=== PATIENT | female | born 1945 | race Caucasian/White ===

== ENCOUNTER → 2017-01-21 | Outpatient (CLI) | payer OTHER ==
[~2017-01-21] MED LIST: CLEOCIN PO; HCTZ PO; MELOXICAM15 MG PO; MONTELUKAST SOD10 MG PO; PANTOPRAZOLE SO40 MG PO; PAROXETINE HCL20 M1 PO; PRAVASTATIN SOD40 MG PO; PRINIVIL10 MG PO; VOL-CARE RX TA1 EACH PO; WELLBUTRIN100 MG PO
--- NOTE | ~2017-01-21 | MY11 ---
[facility] A Service of [facility] RADIOLOGY TEXT RESULTS PATIENT: STACIA GARCIA LOCATION: [facility] : 46 UNIT #: [id number] AGE: [address]: WILLIE SANCHEZ MD SEX: F ORDER DR: [id number] [place] [id number] [facility]. [place], [place] [address] [id number] O MR#: [id number] Acc #: [id number] NAME: STACIA GARCIA. : 1945 SEX: F STUDY DATE/TIME: 01/21/2017 9:03 UNIT: [facility] ROOM: STUDY DESCRIPTION: MY Mammogram Screening Dig Nicholas Attending Physician: Willie Sanchez M.D. Referring Physician: Willie Sanchez M.D. Ordering Physician: Willie Sanchez M.D. Primary Care Physician: Willie Sanchez M.D. MEDICAL IMAGING REPORT This report is preliminary unless electronic signature is present EXAM Digital screening mammogram, 01/21/2017. HISTORY 71-year-old woman; positive family history, sister. Prior excisional biopsy, right breast. Annual screening. COMPARISON 01/14/2005, 06/19/2010, 09/23/2011. FINDINGS Digital imaging of each breast was completed utilizing a two-view examination of each breast in craniocaudal and mediolateral-oblique projections. Review and interpretation of digital mammograms include a second review in conjunction with FDA-approved CAD device. There is a normal parenchymal presentation bilaterally consistent with the patient's age. There are no breast masses imaged and no parenchymal asymmetry is visualized. There are no suspicious microcalcifications and I see no focal architectural disturbance. NOTE: Breast parenchyma is predominantly fatty replaced. IMPRESSION Negative screening digital mammogram. One-year followup recommended. Patients over the age of 40 are entered into a reminder system with target due date for the next mammogram. A result letter will also be sent to the patient. BIRADS: 1 Negative [facility] A Service [facility] RADIOLOGY TEXT RESULTS PATIENT: STACIA GARCIA LOCATION: [facility] : 46 UNIT #: [id number] AGE: [address]: WILLIE SANCHEZ MD SEX: F ORDER DR: Dictated by... Luis Angel Felder M.D. THIS IS AN ELECTRONICALLY VERIFIED REPORT Luis Angel Felder M.D. at 01/22/2017 12:27 PM TRICIA/adeola TD: 01/22/2017 12:04 JOB #: [id number] MEDICAL IMAGING REPORT Page 1 of 1 COPY
--- NOTE | ~2017-01-21 | CR97 ---
[facility] A Service of [facility] RADIOLOGY TEXT RESULTS PATIENT: STACIA GARCIA LOCATION: [facility] : 46 UNIT #: [id number] AGE: [address]: WILLIE SANCHEZ MD SEX: F ORDER DR: [id number] [facility] [address] [facility]. [place], [place] [address] [id number] O MR#: [id number] Acc #: [id number] NAME: STACIA GARCIA : 1945 SEX: F STUDY DATE/TIME: 01/21/2017 11:30 UNIT: [facility] ROOM: STUDY DESCRIPTION: CR Esophagram Attending Physician: Willie Sanchez M.D. Referring Physician: Willie Sanchez M.D. Ordering Physician: Willie Sanchez M.D. Primary Care Physician: Willie Sanchez M.D. MEDICAL IMAGING REPORT This report is preliminary unless electronic signature is present EXAM Double contrast barium esophagram INDICATION Choking on food and liquids for one month. TECHNIQUE Patient was administered bicarbonate crystals as well as thick and thing barium and multiple fluoroscopic images were obtained. FINDINGS The patient's thoracic esophagus is of normal caliber. Esophageal motility appeared within normal limits. Esophageal mucosa appeared unremarkable. Patient does appear to have a small hiatal hernia. She was administered a barium tablet which passed promptly into the stomach. IMPRESSION Small hiatal hernia, otherwise unremarkable examination. Total fluoroscopy time was 0.7 minutes and a total of 13 fluoroscopic images were obtained. Dictated by... Hetal Whitney M.D. THIS IS AN ELECTRONICALLY VERIFIED REPORT Hetal Whitney M.D. at 01/22/2017 4:52 PM NIECY/tash TD: 01/22/2017 09:52 JOB #: [id number] MEDICAL IMAGING REPORT Page 1 of 1 COPY
== END | disposition home or self-care (01) ==
LOC: CWCC 08:11
DX: Z12.31 Encounter for screening mammogram for malignant neoplasm of breast (principal); Z80.3 Family history of malignant neoplasm of breast; Z98.890 Other specified postprocedural states; E78.00 Pure hypercholesterolemia, unspecified; R07.89 Other chest pain; R13.10 Dysphagia, unspecified; K44.9 Diaphragmatic hernia without obstruction or gangrene
CPT/HCPCS: 74220; G0202

== ENCOUNTER → 2017-03-02 | Outpatient (CLI) | payer OTHER ==
--- NOTE | ~2017-03-02 | CR63 ---
[facility] A Service [facility] RADIOLOGY TEXT RESULTS PATIENT: STACIA GARCIA LOCATION: [facility] : 46 UNIT #: [id number] AGE: [address]: Desiree Stapleton MD SEX: F ORDER DR: [id number] [facility] [address] [facility]. [place], [place] [address] [id number] O MR#: [id number] Acc #: [id number] NAME: STACIA GARCIA. : 1945 SEX: F STUDY DATE/TIME: 03/02/2017 11:56 UNIT: [facility] ROOM: STUDY DESCRIPTION: CR Chest 2 View Attending Physician: Estephania Stapleton M.D. Referring Physician: Estephania Stapleton M.D. Ordering Physician: Estephania Stapleton M.D. Primary Care Physician: Meena Tirado M.D. MEDICAL IMAGING REPORT This report is preliminary unless electronic signature is present EXAM 2 views chest 03/02/2017 HISTORY Abnormal EKG. Cough, short of air, congestion 2 months. Nonsmoker. High blood pressure. TECHNIQUE PA and lateral radiographs the chest are presented. COMPARISON 01/08/2016 FINDINGS No acute-appearing bony abnormality. There are degenerative changes in the spine. Patient appears to be status post L1 vertebroplasty. The heart is mildly enlarged. Stable. Stable appearance of tortuous descending thoracic aorta. Lungs somewhat hyperinflated. Correlate with any known chronic airway disease. There are some fine linear interstitial densities at the bilateral lung bases, left greater than right. Likely reflecting chronic interstitial change. More conspicuous than on prior study. There is no compelling evidence of pulmonary edema. No indication of pneumonia. No pleural effusion or pneumothorax and no suspicious nodule. The pulmonary vasculature appears within normal limits. Dictated by... Elías Eubanks M.D. THIS IS AN ELECTRONICALLY VERIFIED REPORT Elías Eubanks M.D. at 03/02/2017 6:08 PM JSK/adeola [facility] A Service [facility] RADIOLOGY TEXT RESULTS PATIENT: STACIA GARCIA LOCATION: [facility] #: [id number] : 46 UNIT #: [id number] AGE: [address]: Desiree Stapleton MD SEX: F ORDER DR: TD: 03/02/2017 17:58 JOB #: [id number] MEDICAL IMAGING REPORT Page 1 of 1 COPY
== END | disposition home or self-care (01) ==
LOC: CRAD 11:22
DX: R94.31 Abnormal electrocardiogram [ECG] [EKG] (principal)
CPT/HCPCS: 71020

== ENCOUNTER 2017-03-05 18:29 | Inpatient (IN) | payer OTHER ==
--- NOTE | ~2017-03-05 | CO ---
Unit #: [id number] #: [id number] Patient: STACIA GARCIA [id number] [address] [place], [place] [address] [id number] I MR#: [id number] NAME: STACIA GARCIA. ROOM: 576 Age: 71 Sex: F Admission Date: 03/05/2017 : 1945 Attending Physician: Eva Vuong M.D. Primary Care Physician: Meena Tirado M.D. CONSULTATION REPORT REASON FOR CONSULTATION Symptomatic anemia. HISTORY OF PRESENTING ILLNESS The patient is a very pleasant, healthy-appearing 71-year-old female, who presented to the emergency department for evaluation of generalized weakness and shortness of breath. She actually went to her primary care physician yesterday, where the routine lab work was done and she was told that her hemoglobin is quite low and she needed to go to the ER. She has noticed dark stools for the past several months. Denies any bright red stool. Denies any other GI complaints. Denies abdominal pain, nausea, or vomiting. Denies any change in weight. She reports her last colonoscopy was about 9 years ago. PAST MEDICAL HISTORY Hypertension, hyperlipidemia, back surgery. PAST SURGICAL HISTORY Colonoscopy about 9 years ago. ALLERGIES To Phenergan and codeine. HOME MEDICATIONS Pravastatin, Protonix, ibuprofen, paroxetine, montelukast, meloxicam, lisinopril, aspirin. SOCIAL HISTORY The patient lives at home with her . Denies alcohol, illicit drugs, or tobacco. FAMILY HISTORY Mother with cardiac disease. Father with history of perhaps cancer. REVIEW OF SYSTEMS A complete 10-point review of systems is completed and negative except as mentioned in the HPI. PHYSICAL EXAMINATION GENERAL: The patient is a very pleasant, 71-year-old female, who appears in no acute distress. VITAL SIGNS: Temperature is 98.4, pulse is 70, respirations 16, blood pressure is 105/89. HEENT: PERRLA. Unit #: [id number] #: [id number] Patient: STACIA GARCIA NECK: Supple. CARDIAC: S1, S2. LUNGS: Clear to auscultation. ABDOMEN: Soft, rounded, nontender, nondistended. Positive bowel sounds. NEUROLOGIC: The patient is alert, awake, and oriented x3. DIAGNOSTIC STUDIES LABORATORY RESULTS: Chemistry is completely normal. White count 6.9; hemoglobin on arrival was 4.9, after 2 units, she was 6.9, she is currently receiving two more units; hematocrit is 22.7; and platelets are 280. ASSESSMENT AND PLAN Anemia of acute blood loss. We will plan EGD for the morning. Continue to monitor H and H. Continue transfusions as needed. The patient has poor access at this time and it is currently being used for transfusions, thus we will change Protonix from Protonix drip, which she has already been bolused two 40 mg IV b.i.d. Further recommendations depend the EGD in the morning. Thank you for this interesting consult. We will continue to follow along. Dictated by... Briana Singh A.P.R.N. for Jacobo Garrison/kervin TD: 03/06/2017 21:01 JOB #: [id number] CONSULTATION REPORT Page 1 of 1 X X CONSULTATION REPORT
--- NOTE | ~2017-03-05 | OR ---
Unit #: [id number] #: [id number] Patient: STACIA GARCIA [id number] [address] [place], [place] [address] [id number] I MR#: [id number] NAME: STACIA GARCIA. ROOM: 576 Date of Procedure: 03/07/2017 Admission Date: 03/05/2017 Surgeon: Chuy Dempsey M.D. : 1945 Attending Physician: Eva Vuong M.D. Primary Care Physician: Meena Tirado M.D. OPERATIVE REPORT PROCEDURE PERFORMED Esophagogastroduodenoscopy with biopsy. INDICATIONS FOR PROCEDURE The patient with severe anemia, iron deficiency; blood in the stool, undergoing evaluation with upper endoscopy. MEDICATIONS Monitored anesthesia. POSTOPERATIVE FINDINGS 1. Normal esophagus. 2. Mild gastritis. Biopsy was taken. 3. Normal duodenum and distal duodenum. 4. No clear signs or stigmata of recent bleeding was seen. PLAN We will need further evaluation with colonoscopy. DESCRIPTION OF PROCEDURE The patient was explained of the procedure, risks, and benefits along with risks and benefits of anesthesia. She was brought to the endoscopy room. Propofol anesthesia was given. Bite block was placed. The scope was passed down the mouth into the esophagus, stomach, duodenum, and distal duodenum. Findings as described. Biopsy was taken. Gently, I pulled the scope out of the patient's mouth. She tolerated it well. Dictated by... Jacobo Garrison/kervin TD: 03/07/2017 12:29 JOB #: [id number] Unit #: [id number] #: [id number] Patient: STACIA GARCIA OPERATIVE REPORT Page 1 of 1 X Chuy Dempsey MD PROCEDURE OPERATIVE NOTE
--- NOTE | ~2017-03-05 | HP ---
Unit #: [id number] #: [id number] Patient: STACIA GARCIA [id number] [facility] [address] [facility] [facility]. [place], [place] [address] [id number] I MR#: [id number] NAME: STACIA GARCIA. ROOM: 22517 Age: 71 Sex: F Admission Date: 03/05/2017 : 1945 Attending Physician: Danielle Treadwell M.D. Primary Care Physician: Meena Tirado M.D. HISTORY AND PHYSICAL CHIEF COMPLAINT Short of air, weak. HISTORY OF PRESENT ILLNESS The patient is a 71-year-old female with past medical history of hypertension, hyperlipidemia, who presented to the emergency department for evaluation of the above. The patient states that she has had a two to three-month history of increasing generalized weakness and shortness of breath. She states that she has dyspnea on exertion when walking across the room. She denies any chest pain. She has had palpitations. She denies any fever. No abdominal pain. She has noticed her stool has been dark the past couple of weeks but no blood in the stool. She has actually gained weight, about 10 pounds, over the past year. She did have a colonoscopy about 9 years ago at [facility]. She has never had an EGD. She saw her primary care physician today and routine lab work was done. She states that as she was leaving the appointment, she was called and told to go to the emergency department for low blood count. In the emergency department, hemoglobin was noted to be 4.9, MCV 61.7. She was heme-positive in the emergency department. Two units of packed red blood cells have been ordered. She is being admitted to [facility] for evaluation and further treatment. PAST MEDICAL HISTORY 1. Admission to [facility] for back surgery (no records). 2. Hypertension. 3. Hyperlipidemia. PAST SURGICAL HISTORY 1. Back surgery. 2. Neck surgery. 3. Colonoscopy approximately 9 years ago (no records). ALLERGIES 1. Phenergan. 2. Codeine. HOME MEDICATIONS Include: 1. Pravastatin. 2. Pantoprazole. 3. Bupropion. Unit #: [id number] #: [id number] Patient: STACIA GARCIA 4. Paroxetine. 5. Montelukast. 6. Meloxicam. 7. Lisinopril. 8. Aspirin. Home medications will need to be reviewed and verified. SOCIAL HISTORY The patient lives with her . There is no tobacco or alcohol use. Her code status is a FULL CODE. FAMILY HISTORY Notable for her mother dying of a myocardial infarction at the age of 78. Her father had what sounds like laryngeal malignancy. REVIEW OF SYSTEMS A complete review of systems is negative except as indicated in the HPI. The patient states that she has seen Dr. Hawkins in the past, specifically for preoperative evaluation prior to back surgery. She also saw him on the day prior to admission regarding the difficulty breathing that she has been having. She states that he started her on hydrochlorothiazide which she has been taking as prescribed. PHYSICAL EXAMINATION VITAL SIGNS: Temperature 98.4, pulse 74, respirations 15, blood pressure 153/59, oxygen saturation 97% on room air. GENERAL: The patient is a very pleasant female who is awake and alert in no acute distress. HEENT: Head is atraumatic. Conjunctivae are pale. NECK: Supple. Trachea is midline. LUNGS: Clear to auscultation bilaterally with no increased work of breathing. HEART: Regular rate and rhythm. ABDOMEN: Soft, nontender. Bowel sounds present in all four quadrants. RECTAL: Heme-positive per ER documentation. EXTREMITIES: Nontender with no pedal edema. NEUROLOGIC: Patient is awake and alert. She follows commands. PSYCHIATRIC: Mood and affect are normal. Patient is cooperative. SKIN OF EXAMINED AREAS: Warm and dry. DIAGNOSTIC STUDIES LABORATORY: INR 1. Complete blood count notable for hemoglobin 4.9, hematocrit 17, MCV 61.7, RDW 20.3. Comprehensive metabolic panel completely normal. IMAGING: Chest x-ray, from 03/02/2017, showed no compelling evidence of pulmonary edema. The heart was mildly enlarged. ASSESSMENT The patient is a 71-year-old female with: 1. Symptomatic anemia. The patient's hemoglobin is 4.9. There is no baseline for comparison. 2. Acute blood loss anemia. Two units of packed red blood cells have been ordered. 3. Gastrointestinal bleed. The patient had a colonoscopy about 9 years ago (no records). 4. Hypertension. Unit #: [id number] #: [id number] Patient: STACIA GARCIA 5. Hyperlipidemia. PLAN 1. Admit to ICU. 2. Clear liquid diet for possible endoscopy. 3. N.p.o. after midnight. 4. Transfuse 2 units of packed red blood cells as previously ordered. 5. Hemoglobin and hematocrit 1 hour after transfusion and q.6 h. 6. Protonix 80 mg IV times 1, followed by Protonix drip at 8 mg per hour. 7. Iron studies, B12 and folate. 8. Hold aspirin and meloxicam. 9. Consult Dr. Dempsey regarding GI bleed. 10. EKG and cardiac enzymes. 11. SCDs for DVT prophylaxis. 12. Bedrest, fall precautions. 13. Repeat labs in the morning. 14. Additional workup and consultants based on above. 15. Regarding code status, the patient is a FULL CODE. Thirty minutes critical care time spent in the care of this patient (7:28 to 7:58 p.m.). Dictated by Jacobo Hubbard/ben TD: 03/05/2017 21:36 JOB #: [id number] HISTORY AND PHYSICAL Page 1 of 1 X Danielle Treadwell MD HISTORY AND PHYSICAL
--- NOTE | ~2017-03-05 | CR72 ---
[facility] A Service of [facility] RADIOLOGY TEXT RESULTS PATIENT: STACIA GARCIA LOCATION: [facility] [place] [facility] : 46 UNIT #: [id number] AGE: [address]: Eva Vuong MD SEX: F ORDER DR: [id number] [facility] [address] [place], [place] [address] [id number] I MR#: [id number] Acc #: [id number] NAME: STACIA GARCIA. : 1945 SEX: F STUDY DATE/TIME: 03/05/2017 19:55 UNIT: [facility] ROOM: [facility] STUDY DESCRIPTION: CR Chest Single View Portable Attending Physician: Danielle Treadwell M.D. Primary Care Physician: Meena Tirado M.D. MEDICAL IMAGING REPORT This report is preliminary unless electronic signature is present EXAM Portable chest radiograph 03/05/2017 HISTORY Short of air Low O2 sats. Began 2 months ago. FINDINGS AP radiograph of the chest is presented. Clothing artifacts overlying the image. Comparison 03/02/2017. Stable cardiac enlargement. Stable tortuosity descending thoracic aorta. The lungs are well inflated. No acute pulmonary disease is seen. No pleural effusion or pneumothorax. No suspicious nodule. There appears to be mild thoracolumbar scoliosis convex to left lower thoracic spine and to right in the lumbar spine. There is high density seen in the L2 vertebral body which could represent degenerative sclerotic change or prior vertebroplasty. Correlate with history. In the absence of risk factors, isolated sclerotic metastatic disease felt unlikely. No change from prior study. No dedicated lumbar spine imaging for comparison. If it would assist in management, lumbar spine radiographs could be obtained. Please correlate with a history of any prior vertebroplasty. Dictated by... Elías Eubanks M.D. THIS IS AN ELECTRONICALLY VERIFIED REPORT Elías Eubanks M.D. at 03/08/2017 8:19 PM CAMELIA/priya TD: 03/06/2017 01:17 JOB #: [id number] MEDICAL IMAGING REPORT Page 1 of 1 COPY
--- NOTE | ~2017-03-05 | OR ---
Unit #: [id number] #: [id number] Patient: STACIA GARCIA [id number] [facility]. [place], [place] [address] [id number] Red MR#: [id number] NAME: STACIA GARCIA. ROOM: 576 Date of Procedure: 03/08/2017 Admission Date: 03/05/2017 Surgeon: Chuy Dempsey M.D. : 1945 Attending Physician: Chris Chakraborty M.D. Primary Care Physician: Meena Tirado M.D. 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 INDICATIONS FOR PROCEDURE The patient with severe iron-deficiency anemia and GI bleeding, undergoing colonoscopy for evaluation. MEDICATIONS Monitored anesthesia. POSTOPERATIVE FINDINGS 1. 5 mm AVM in the cecum, cauterized using APC. 2. Polyp 1.5 cm, sigmoid colon, snared and sent for histopathology. 3. Rest of the colon exam to cecum was normal. Prep was adequate. PLAN Follow up on pathology report. Capsule endoscopy for further evaluation. DESCRIPTION OF PROCEDURE The patient was explained of the procedure, risks, and benefits along with risks and benefits of anesthesia. She was brought to the endoscopy room. Propofol anesthesia was given. Rectal exam was done, which was normal. Colonoscope was lubricated, passed up the rectum, advanced under direct vision all the way to the cecum. Cecum was identified by ileocecal valve and appendiceal orifice. I then started to pull the scope out carefully looking. AVM seen in the cecum was cauterized using APC. Polyp seen in sigmoid was snared and sent for histopathology. Rest of the mucosa was normal and healthy. I retroflexed in the rectum, internal hemorrhoids noted. Gently, the scope was pulled out. She tolerated it well. Dictated by... Jacobo Garrison/kervin TD: 03/09/2017 02:09 JOB #: [id number] Unit #: [id number] #: [id number] Patient: STACIA GARCIA OPERATIVE REPORT Page 1 of 1 X Chuy Dempsey MD PROCEDURE OPERATIVE NOTE
--- NOTE | ~2017-03-05 | EKG ---
PATIENT: STACIA GARCIA UNIT #: [id number] Ventricular Rate: 78 BPM Atrial Rate: 78 BPM P-R Interval: 150 ms QRS Duration: 82 ms Q-T Interval: 416 ms QTC Calculation(Bezet): 474 ms P [place]: -24 degrees Calculated T [place]: -11 degrees Diagnosis Line: Normal sinus rhythm Diagnosis Line: Minimal voltage criteria for LVH, may be normal Diagnosis Line: variant Diagnosis Line: Nonspecific ST and T wave abnormality Diagnosis Line: Abnormal ECG Diagnosis Line: No previous ECGs available Diagnosis Line: Confirmed by ELIEL HERNANDEZ MD ([id number]) on Diagnosis Line: 03/08/2017 8:34:00 AM INTERPRETING MD: DAVID SALOMON
--- NOTE | ~2017-03-05 | DS ---
Unit #: [id number] #: [id number] Patient: STACIA GARCIA [id number] [address] [place], [place] [address] [id number] I MR#: [id number] NAME: STACIA GARCIA. ROOM: 576 Age: 71 Sex: F Admission Date: 03/05/2017 : 1945 Discharge Date: 03/09/2017 Attending Physician: Chris Chakraborty M.D. Primary Care Physician: Meena Tirado M.D. DISCHARGE SUMMARY ADDENDUM TO JOB#: [id number] FINAL DIAGNOSES 1. Acute blood loss anemia. 2. Gastrointestinal bleed. 3. Gastritis. 4. Cecal arteriovenous malformation, status post Argon plasma coagulation. 5. Hypokalemia, resolved. 6. Hyponatremia, resolved. 7. Cellulitis, left arm. ADDITIONAL PROCEDURE Colonoscopy with snare polypectomy and colonoscopy with Argon plasma coagulation for arteriovenous malformation in the cecum. POSTOPERATIVE FINDINGS 1. 5 mm arteriovenous malformation in the cecum, cauterized using a PC. 2. Polyp 1.5 cm sigmoid colon snared and sent for histopathology. 3. Rest of colon exam to cecum normal, prep was adequate. DIAGNOSTIC STUDIES Histopathology report: Sigmoid colon polyp. The patient is to follow-up with Dr. Dempsey for these results. Most recent diagnostic studies, WBC 10.6, hemoglobin 9.9, hematocrit 31.5, MCV 72.0, MCH 22.5, RDW 27.7, platelet count 306,000, sodium 139, potassium 4.3, chloride 108, CO2 23, glucose 109, BUN 11, creatinine 0.7, calcium 8.9, AST 35, ALT 25, alkaline phos 44, bili total 0.7, total protein 6.2, albumin 3.7, magnesium 2.1, troponin 1 less than 0.03, percent MB 1.8, iron 13, TIBC 619, transferrin 442, transit 2, B12 1443, folate greater than 23.6. Ferritin 2. DISCHARGE MEDICATIONS 1. Wellbutrin 100 mg p.o. every morning. 2. Paxil 20 mg p.o. at bedtime. 3. Hydrochlorothiazide 25 mg p.o. daily. 4. Pravastatin sodium 40 mg p.o. daily. 5. Prinivil 10 mg p.o. daily. 6. Singulair 10 mg p.o. daily. 7. Protonix 40 mg p.o. b.i.d., prescription written #60, no refills. 8. Vitamin B complex 3/FA-vit C/biotin tablet 1 p.o. daily. 9. Clindamycin 600 mg p.o. t.i.d. x7 days, prescription written, #21, no refills. Unit #: [id number] #: [id number] Patient: STACIA GARCIA DIET Healthy heart diet as tolerated. CONDITION Stable. DISPOSITION Home with . FOLLOW UP #1. Per notation of Dr. Dempsey today, the patient is to follow-up in his office in 4 weeks. #2. Per discussion with the patient's , the patient is to have a capsule endoscopy scheduled through Dr. Dempsey's office and performed at [facility]. It is unclear when this is to be performed and whether it is to be performed prior to the patient's 4 week follow-up visit. I have asked the nursing staff to clarify this for the patient prior to discharge today. #3. The patient has been advised to discontinue all NSAID use. #4. The patient is established with Dr. Tirado, as her PCP. She has been advised to follow up with Dr. Tirado in 48 hours if there is no improvement in left arm cellulitis. She has also been advised to go to the emergency department, if fever, chills, worsening of left arm cellulitis and she has verbalized understanding this information. HOSPITAL COURSE The patient is a 71-year-old female who presented t. [facility] on the date of admission, complaints of shortness of air and weakness. She was evaluated in the emergency department and lab work revealed hemoglobin 4.9. She is also noted to be heme positive at that time. She was admitted to the hospital for further evaluation and management of her condition. Please refer to the history and physical report for complete details. Dr. Dempsey was consulted for further GI evaluation and management of symptomatic anemia and likely GI bleed. Per his report, the patient noted dark stools for the past several months. She took meloxicam for chronic back pain at home. There is no history of EtOH use. An EGD was performed with results showing mild gastritis. No clear signs or stigmata of recent bleeding was seen. The esophagus, duodenum and distal duodenum were all normal per report review. The patient was scheduled for colonoscopy which was performed yesterday in which patient tolerated well. Results are as dictated above. At this time, the patient is stable, has no GI bleeding. Hemoglobin and hematocrit are as dictated above. Patient received a total of 4 units of packed red blood cells during her hospital course. She has no shortness of air and has been cleared for discharge home with follow-up instructions as dictated above by both Dr. Dempsey and Dr. Chakraborty. The patient complained of increasing erythema, heat and tenderness of the left arm near the left antecubital space. This area was evaluated by Dr. Chakraborty and she has been given a prescription for clindamycin 600 mg p.o. t.i.d. for 7 days and a prescription has been written for that medication. She is to follow-up with Dr. Tirado or the emergency department per instructions dictated above. This information has been discussed with the patient, she verbalizes understanding. Unit #: [id number] #: [id number] Patient: STACIA GARCIA Dictated by... Mattie Sheppard A.P.R.N. for Jacobo Dailey/marisol TD: 03/09/2017 23:31 JOB #: [id number] DISCHARGE SUMMARY Page 1 of 1 X Mattie Sheppard APRN X DISCHARGE SUMMARY
--- NOTE | ~2017-03-05 | DS ---
Unit #: [id number] #: [id number] Patient: STACIA GARCIA [id number] [address] [place], [place] [address] [id number] I MR#: [id number] NAME: STACIA GARCIA. ROOM: 576 Age: 71 Sex: F Admission Date: 03/05/2017 : 1945 Discharge Date: 03/07/2017 Attending Physician: Eva Vuong M.D. Primary Care Physician: Meena Tirado M.D. DISCHARGE SUMMARY FINAL DIAGNOSES 1. Acute blood loss anemia. 2. Gastrointestinal bleed. SECONDARY DIAGNOSES 1. Hypertension. 2. Gastroesophageal reflux disease. 3. Anxiety/depression. 4. Hyperlipidemia. CONSULT [address]. Dempsey. PROCEDURE She had endoscopy on 03/07/17. HOSPITAL COURSE 71-year-old female who presented with profound weakness progressively over the past two to three months. She gave a history of having melenic stools. Hemoglobin on admission was about 4.9 and it went as low as 4.8. She received about four units of packed red blood cells. She is scheduled to have endoscopy today. At the time of this dictation, endoscopy is pending. Hemoglobin today was 10.9 and stable. No evidence of bleeding per rectum or black stools. She will be discharged when cleared by Dr. Dempsey after endoscopy. Otherwise, further management will be determined by GI. MEDICATIONS Tentative medications on discharge include: 1. Wellbutrin 100 mg p.o. daily. 2. Paroxetine 20 mg p.o. daily. 3. Hydrochlorothiazide 25 mg p.o. daily. 4. Pravastatin 40 mg p.o. daily. 5. Prinivil 10 mg p.o. daily. 6. Singulair 10 mg p.o. daily. 7. She is to stop the meloxicam. 8. Protonix 4 mg p.o. daily. 9. Vitamin D complex, one tablet p.o. daily. She is to follow with her PCP in the next three to five days. Will schedule a repeat CBC, BMP in a week from discharge. She will be discharged with home health if she is agreeable. Time spent coordinating discharge is about 23 minutes. Unit #: [id number] #: [id number] Patient: STACIA GARCIA Dictated by... Jacobo Mann/yevgeniy TD: 03/07/2017 11:47 JOB #: [id number] DISCHARGE SUMMARY Page 1 of 1 X Eva Vuong MD DISCHARGE SUMMARY
[2017-03-05 19:24] LABS: BASOPHIL# 0.1 X10e3 (0-0.3); BASOPHIL% 1.8 % (0-2.5); EOSINOPHIL# 0.4 X10e3 (0-0.7); EOSINOPHIL% 7.2 % (0.0-7.0); LYMPHOCYTE# 1.7 X10e3 (1.0-3.5); LYMPHOCYTE% 28.2 % (17.0-45.0); MEAN CELL VOLUME 61.7 FL (83-96); MEAN CORPUSCULAR HEMOGLOBIN 17.7 PG (28-34); MEAN CORPUSCULAR HGB CONC 28.7 g/dL (30-36); MEAN PLATELET VOLUME 8.4 FL (6.5-11.5); MONOCYTE# 0.7 X10e3 (0-1.0); MONOCYTE% 10.8 % (3.0-12.0); NEUTROPHIL# 3.2 X10e3 (1.5-7.1); PLATELET COUNT 325 X10e3 (140-420); RED BLOOD COUNT 2.76 X10e (3.90-5.30); RED CELL DISTRIBUTION WIDTH 20.3 % (11.0-15.5); WHITE BLOOD COUNT 6.2 X10e3 (4.0-10.5)
[2017-03-05 19:30] LABS: DIFF IND YES; HEMOGLOBIN 4.9 gm/dL (12.0-16.0)
[2017-03-05 19:34] LABS: ALBUMIN SERUM 4.1 g/dL (3.5-5.0); BILIRUBIN,TOTAL 0.5 mg/dL (0.2-2.0); BUN/CREATININE RATIO 23.33; CALCIUM SERUM 9.1 mg/dL (8.4-10.2); CREATININE SERUM 0.6 mg/dL (0.6-1.4); GLOM FILT RATE Estimated 92.4 mL/min (>60); POTASSIUM 3.8 mmol/L (3.5-5.1)
[2017-03-05 19:36] LABS: PARTIAL THROMBOPLASTIN TIME 22.2 SECONDS (23.5-31.3); PROTHROMBIN TIME (PATIENT) 10.4 SECONDS (9.6-11.5)
[2017-03-05 19:42] LABS: ANISOCYTOSIS MOD; MICROCYTOSIS MOD; PLATELET ESTIMATE NORMAL (NORMAL)
[2017-03-05 19:43] LABS: POLYCHROMASIA SL
[2017-03-05 20:43] LABS: HEMATOCRIT 16.2 % (35.0-45.0)
[2017-03-05 20:46] LABS: HEMOGLOBIN 4.8 gm/dL (12.0-16.0)
[2017-03-05 21:09] LABS: IRON SERUM 13 ug/dL (28-170); TOTAL IRON BINDING CAPACITY 619 ug/dL (269-535); TRANSFERRIN 442 mg/dL (192-382); TRANSFERRIN SATURATION 2 % (20-50)
[2017-03-05 21:28] LABS: FOLATE (FOLIC ACID) >23.6 ng/mL (>5.8)
[2017-03-05 22:05] LABS: %MB 1.8 % (0.0-4.0); MB 2.2 ng/ml
[2017-03-05] MEDS ORDERED: PRAVASTATIN SOD40 MG PO (23:05)
[2017-03-05] MEDS ORDERED: WELLBUTRIN100 MG PO (23:06)
[2017-03-05] MEDS ORDERED: PAROXETINE HCL20 M1 PO (23:06)
[2017-03-05] MEDS ORDERED: MONTELUKAST SOD10 MG PO (23:07)
[2017-03-05] MEDS ORDERED: PRINIVIL10 MG PO (23:07)
[2017-03-05] MEDS ORDERED: MELOXICAM15 MG PO (23:07)
[2017-03-05] MEDS ORDERED: VOL-CARE RX TA1 EACH PO (23:08)
[2017-03-05] MEDS ORDERED: PANTOPRAZOLE SO40 MG PO (23:09)
[2017-03-05] MEDS ORDERED: HCTZ PO (23:17)
[2017-03-06 06:09] LABS: BASOPHIL# 0.1 X10e3 (0-0.3); BASOPHIL% 1.5 % (0-2.5); EOSINOPHIL# 0.5 X10e3 (0-0.7); EOSINOPHIL% 7.4 % (0.0-7.0); HEMATOCRIT 22.7 % (35.0-45.0); LYMPHOCYTE# 1.6 X10e3 (1.0-3.5); LYMPHOCYTE% 23.1 % (17.0-45.0); MEAN CORPUSCULAR HEMOGLOBIN 20.3 PG (28-34); MEAN CORPUSCULAR HGB CONC 30.6 g/dL (30-36); MEAN PLATELET VOLUME 8.5 FL (6.5-11.5); MONOCYTE# 0.7 X10e3 (0-1.0); MONOCYTE% 9.6 % (3.0-12.0); NEUTROPHIL% 58.4 % (40-75); PLATELET COUNT 280 X10e3 (140-420); RED BLOOD COUNT 3.42 X10e (3.90-5.30); RED CELL DISTRIBUTION WIDTH 25.1 % (11.0-15.5); WHITE BLOOD COUNT 6.9 X10e3 (4.0-10.5)
[2017-03-06 06:11] LABS: DIFF IND NO; HEMOGLOBIN 6.9 gm/dL (12.0-16.0); MEAN CELL VOLUME 66.5 FL (83-96)
[2017-03-06 06:39] LABS: CALCIUM SERUM 8.9 mg/dL (8.4-10.2); CREATININE SERUM 0.6 mg/dL (0.6-1.4); GLOM FILT RATE Estimated 92.4 mL/min (>60); POTASSIUM 3.9 mmol/L (3.5-5.1)
[2017-03-06 06:54] LABS: %MB 1.7 % (0.0-4.0); MB 2.2 ng/ml
[2017-03-06 09:28] LABS: %MB 1.8 % (0.0-4.0); MB 2.4 ng/ml
[2017-03-06 15:07] LABS: HEMATOCRIT 32.4 % (35.0-45.0)
[2017-03-06 15:09] LABS: HEMOGLOBIN 10.2 gm/dL (12.0-16.0)
[2017-03-06 21:17] LABS: HEMATOCRIT 32.4 % (35.0-45.0); HEMOGLOBIN 10.4 gm/dL (12.0-16.0)
[2017-03-07 03:57] LABS: HEMATOCRIT 34.9 % (35.0-45.0); HEMOGLOBIN 10.9 gm/dL (12.0-16.0)
[2017-03-07 07:58] LABS: BASOPHIL# 0.1 X10e3 (0-0.3); EOSINOPHIL# 0.4 X10e3 (0-0.7); EOSINOPHIL% 5.2 % (0.0-7.0); HEMATOCRIT 34.2 % (35.0-45.0); HEMOGLOBIN 10.5 gm/dL (12.0-16.0); LYMPHOCYTE# 1.4 X10e3 (1.0-3.5); LYMPHOCYTE% 18.2 % (17.0-45.0); MEAN CORPUSCULAR HEMOGLOBIN 21.9 PG (28-34); MEAN CORPUSCULAR HGB CONC 30.8 g/dL (30-36); MEAN PLATELET VOLUME 8.8 FL (6.5-11.5); MONOCYTE# 0.9 X10e3 (0-1.0); MONOCYTE% 11.8 % (3.0-12.0); NEUTROPHIL# 4.9 X10e3 (1.5-7.1); NEUTROPHIL% 63.8 % (40-75); PLATELET COUNT 307 X10e3 (140-420); RED CELL DISTRIBUTION WIDTH 26.4 % (11.0-15.5); WHITE BLOOD COUNT 7.7 X10e3 (4.0-10.5)
[2017-03-07 07:59] LABS: MEAN CELL VOLUME 71.3 FL (83-96)
[2017-03-07 08:00] LABS: DIFF IND NO
[2017-03-07 08:31] LABS: BUN/CREATININE RATIO 16.25; CALCIUM SERUM 9.3 mg/dL (8.4-10.2); CREATININE SERUM 0.8 mg/dL (0.6-1.4); GLOM FILT RATE Estimated 74.8 mL/min (>60); POTASSIUM 3.8 mmol/L (3.5-5.1)
[2017-03-08 05:44] LABS: HEMATOCRIT 31.8 % (35.0-45.0); HEMOGLOBIN 10.1 gm/dL (12.0-16.0); MEAN CELL VOLUME 70.3 FL (83-96); MEAN CORPUSCULAR HEMOGLOBIN 22.2 PG (28-34); MEAN CORPUSCULAR HGB CONC 31.7 g/dL (30-36); MEAN PLATELET VOLUME 8.4 FL (6.5-11.5); RED BLOOD COUNT 4.53 X10e (3.90-5.30); RED CELL DISTRIBUTION WIDTH 27.2 % (11.0-15.5); WHITE BLOOD COUNT 10.4 X10e3 (4.0-10.5)
[2017-03-08 06:10] LABS: ALBUMIN SERUM 3.8 g/dL (3.5-5.0); BILIRUBIN,TOTAL 1.1 mg/dL (0.2-2.0); BUN/CREATININE RATIO 15.71; CREATININE SERUM 0.7 mg/dL (0.6-1.4); GLOM FILT RATE Estimated 87.8 mL/min (>60); POTASSIUM 3.5 mmol/L (3.5-5.1); PROTEIN TOTAL SERUM 6.6 g/dL (6.0-8.3)
[2017-03-09 05:44] LABS: HEMATOCRIT 31.5 % (35.0-45.0); HEMOGLOBIN 9.9 gm/dL (12.0-16.0); MEAN CORPUSCULAR HEMOGLOBIN 22.5 PG (28-34); MEAN CORPUSCULAR HGB CONC 31.3 g/dL (30-36); RED BLOOD COUNT 4.38 X10e (3.90-5.30); RED CELL DISTRIBUTION WIDTH 27.7 % (11.0-15.5); WHITE BLOOD COUNT 10.6 X10e3 (4.0-10.5)
[2017-03-09 05:59] LABS: ALBUMIN SERUM 3.7 g/dL (3.5-5.0); BILIRUBIN,TOTAL 0.7 mg/dL (0.2-2.0); BUN/CREATININE RATIO 15.71; CALCIUM SERUM 8.9 mg/dL (8.4-10.2); CREATININE SERUM 0.7 mg/dL (0.6-1.4); GLOM FILT RATE Estimated 87.8 mL/min (>60); MAGNESIUM 2.1 mg/dL (1.6-3.0); POTASSIUM 4.3 mmol/L (3.5-5.1); PROTEIN TOTAL SERUM 6.2 g/dL (6.0-8.3)
[2017-03-09] MEDS ORDERED: CLEOCIN PO (16:09)
== END 2017-03-09 17:06 | disposition home or self-care (01) | DRG 378 ==
LOC: CED 18:29 → CEDOF 20:19 → C5C 20:19 → CED 20:51 → CEDOF 20:51 → CICCU3 03-06 01:06 → C5C 03-06 22:30
PROVIDERS: Emergency Medicine; Family Medicine; Internal Medicine; Nurse Practitioner
PROC: 30233N1 Transfusion of Nonautologous Red Blood Cells into Peripheral Vein, Percutaneous Approach (ICD-10-PCS; 2017-03-05)
PROC: 0DB68ZX Excision of Stomach, Via Natural or Artificial Opening Endoscopic, Diagnostic (ICD-10-PCS; 2017-03-07)
PROC: 0DBN8ZX Excision of Sigmoid Colon, Via Natural or Artificial Opening Endoscopic, Diagnostic (ICD-10-PCS; principal; 2017-03-08 15:00)
PROC: 0D5H8ZZ Destruction of Cecum, Via Natural or Artificial Opening Endoscopic (ICD-10-PCS; 2017-03-08 15:00)
PROC: B24BYZZ Ultrasonography of Heart with Aorta using Other Contrast (ICD-10-PCS; 2017-03-09)
DX: K55.21 Angiodysplasia of colon with hemorrhage (principal); D62 Acute posthemorrhagic anemia; E87.1 Hypo-osmolality and hyponatremia; L03.114 Cellulitis of left upper limb; I10 Essential (primary) hypertension; B37.3 Candidiasis of vulva and vagina; E78.5 Hyperlipidemia, unspecified; Z79.82 Long term (current) use of aspirin; D12.5 Benign neoplasm of sigmoid colon; K29.70 Gastritis, unspecified, without bleeding; E87.6 Hypokalemia; K21.9 Gastro-esophageal reflux disease without esophagitis
CPT/HCPCS: 71010; 80048; 80053; 82550; 82553; 82607; 82728; 82746; 83540; 83550; 83735; 84484; 85014; 85018; 85025; 85027; 85610; 85730; 86850; 86900; 86901; 86923; 88305; 88312; 93005; 93306; 99285; C9113; J1940; J2250; J2916; P9016

== ENCOUNTER → 2017-03-25 | Outpatient (CLI) | payer OTHER ==
[2017-03-25 12:42] LABS: HEMATOCRIT 35.9 % (35.0-45.0); HEMOGLOBIN 11.3 gm/dL (12.0-16.0); MEAN CELL VOLUME 75.2 FL (83-96); MEAN CORPUSCULAR HEMOGLOBIN 23.7 PG (28-34); MEAN CORPUSCULAR HGB CONC 31.5 g/dL (30-36); MEAN PLATELET VOLUME 8.6 FL (6.5-11.5); RED BLOOD COUNT 4.77 X10e (3.90-5.30); RED CELL DISTRIBUTION WIDTH 30.9 % (11.0-15.5); WHITE BLOOD COUNT 5.5 X10e3 (4.0-10.5)
== END | disposition home or self-care (01) ==
LOC: CLAB 11:48
PROVIDERS: Internal Medicine
DX: D64.9 Anemia, unspecified (principal)
CPT/HCPCS: 36415; 85027